=== PATIENT | male | born 1960 | race Caucasian/White ===

== ENCOUNTER 2016-08-26 16:03 | Emergency (ER) | payer SELFPAY ==
[~2016-08-26] VITALS: Ht 182.9 cm; Wt 70.0 kg
[~2016-08-26 16:03] MED LIST: CLIN1CAP5 PO; SULF1TAB47 PO
[2016-08-26 16:05] VITALS: BP 130/87; PULSE 111; RESP 18; TEMP 97.4; O2SAT 98
[2016-08-26 16:17] VITALS: PULSE 100
--- NOTE | 2016-08-26 16:17 | PD ---
Physical Exam Narrative Pt is a 55 y/o male presenting to the ED with aching all over his body, he took Advil with no relief. Pt denies any injury or trauma. Pt denies any fevers, chills, N/V/D. He reports his pain as an 8/10. Pt denies any IVDU. Pt denies any significant PMHx. Data Data Last Documented VS Vital Signs Date Time Temp Pulse Resp B/P Pulse Ox O2 Delivery O2 Flow Rate FiO2 08/26/16 16:05 97.4 111 18 130/87 98 MDM Supervised Visit with ARNIE: Blessing Angeles Aug 26, 2016 16:17
--- NOTE | 2016-08-26 16:23 | PD ---
HPI Chief Complaint: Pain: Acute or Chronic Time Seen by Provider: 16:22 Travel History International Travel<30 days: No Contact w/Intl Traveler<30days: No Traveled to known affect area: No History of Present Illness HPI 55-year-old male with no significant medical history presents to emergency department for evaluation of generalized joint pain. Patient states this began 2 days ago when he woke up. He states that it involved all of his joints including his fingers and wrists. He states that today it is "slightly better" his hands are not involved. He does still have wrist elbow, hip, knee, ankle aching. Denies any injury. Has not been working or doing any new activities. Denies any fever or chills. No recent illnesses. No self or familial history of autoimmune disease. States that he heard on the radio the inflammation can cause so he felt he should come to emergency department for further evaluation of this. Patient has no primary care provider, therefore he states he has no significant medical history. Denies IV drug use. He takes no current medications. PFSH Past Medical History Medical History: Denies Significant Hx Social History Alcohol Use: No Tobacco Use: No Substance Use: No Allergies-Medications (Allergen,Severity, Reaction): Coded Allergies: No Known Allergies (Verified , 05/02/13) Reported Meds & Prescriptions Reported Meds & Active Scripts Active Medrol Dosepak (Methylprednisolone) 4 Mg Dspk 4 Mg PO DIRECTED Per Pharmacist direction Bactrim Ds (Trimethoprim/Sulfamethoxazole) Tab 1 Tab PO BID Clindamycin Hcl (Clindamycin HCl) 150 Mg Cap 2 Capl PO TID 10 Days Review of Systems Except as stated in HPI: all other systems reviewed are Neg Physical Exam Narrative GENERAL: Well-nourished male patient, ambulatory distress SKIN: Focused skin assessment warm/dry. No erythema or edema. HEAD: Atraumatic. Normocephalic. EYES: Pupils equal and round. No scleral icterus. No injection or drainage. ENT: No nasal bleeding or discharge. Mucous membranes pink and moist. NECK: Trachea midline. No JVD. CARDIOVASCULAR: Regular rate and rhythm. No murmur appreciated. RESPIRATORY: No accessory muscle use. Clear to auscultation. Breath sounds equal bilaterally. GASTROINTESTINAL: Abdomen soft, non-tender, nondistended. Hepatic and splenic margins not palpable. MUSCULOSKELETAL: No obvious deformities. No clubbing. No cyanosis. No edema. NEUROLOGICAL: Awake and alert. No obvious cranial nerve deficits. Motor grossly within normal limits. Normal speech. PSYCHIATRIC: Appropriate mood and affect; insight and judgment normal. Data Data Last Documented VS Vital Signs Date Time Temp Pulse Resp B/P Pulse Ox O2 Delivery O2 Flow Rate FiO2 08/26/16 17:40 90 133/82 95 Room Air 08/26/16 16:05 97.4 18 Orders Iv Access Insert/Monitor (08/26/16 16:26) Complete Blood Count With Diff (08/26/16 16:26) Basic Metabolic Panel (Bmp) (08/26/16 16:26) C-Reactive Protein (Crp) (08/26/16 16:26) Creatine Kinase (Cpk) (08/26/16 16:26) Sodium Chlor 0.9% 1000 Ml Inj (Ns 1000 M (08/26/16 16:30) Ketorolac Inj (Toradol Inj) (08/26/16 16:30) Labs Laboratory Tests Test 08/26/16 16:45 White Blood Count 4.7 TH/MM3 Red Blood Count 4.20 MIL/MM3 Hemoglobin 14.5 GM/DL Hematocrit 42.5 % Mean Corpuscular Volume 101.2 FL Mean Corpuscular Hemoglobin 34.5 PG Mean Corpuscular Hemoglobin 34.1 % Concent Red Cell Distribution Width 20.5 % Platelet Count 108 TH/MM3 Mean Platelet Volume 7.4 FL Neutrophils (%) (Auto) 54.8 % Lymphocytes (%) (Auto) 26.2 % Monocytes (%) (Auto) 15.0 % Eosinophils (%) (Auto) 2.6 % Basophils (%) (Auto) 1.4 % Neutrophils # (Auto) 2.6 TH/MM3 Lymphocytes # (Auto) 1.2 TH/MM3 Monocytes # (Auto) 0.7 TH/MM3 Eosinophils # (Auto) 0.1 TH/MM3 Basophils # (Auto) 0.1 TH/MM3 CBC Comment DIFF FINAL Differential Comment Sodium Level 139 MEQ/L Potassium Level 3.7 MEQ/L Chloride Level 103 MEQ/L Carbon Dioxide Level 24.0 MEQ/L Anion Gap 12 MEQ/L Blood Urea Nitrogen 5 MG/DL Creatinine 0.70 MG/DL Estimat Glomerular Filtration 117 ML/MIN Rate Random Glucose 86 MG/DL Calcium Level 8.4 MG/DL Total Creatine Kinase 100 U/L C-Reactive Protein 1.37 MG/DL MDM Medical Decision Making Medical Screen Exam Complete: Yes Emergency Medical Condition: Yes Medical Record Reviewed: Yes Differential Diagnosis Arthralgias versus osteoarthritis versus RA versus viral syndrome versus PMR Narrative Course 55-year-old male presents to emergency department for evaluation generalized arthralgias. Patient appears well without distress. Vital signs are stable. CBC is without acute concern. BMP is also without acute concern. CRP is slightly elevated 1.37. Patient is given IV fluids and his heart rate normalizes. He is given Toradol. I will start him on a short course of oral steroids. I encouraged that he establish care with a primary care provider and return immediately with any acute worsening symptoms. Patient is in agreement with the plan of care . Diagnosis Primary Impression: Arthralgia of ankle Qualified Code: M25.571 - Arthralgia of both ankles Additional Impressions: Arthralgia of back Arthralgia of both elbows Arthralgia of both hands Arthralgia of both knees Referrals: Primary Care Physician Patient Instructions: Arthralgia (ED), General Instructions Additional Instructions: Seek primary care evaluation Maintain adequate oral hydration Return immediately with any acute worsening of symptoms Med/Other Pt SpecificInfo: Prescription(s) given Scripts Methylprednisolone Dosepak (Medrol Dosepak)4 Mg Dspk4 Mg PO DIRECTED #1 DSPK Ref 0 Per Pharmacist direction Prov:Leah Franklin 08/26/16 Disposition: 01 DISCHARGE HOME Condition: Stable Leah Franklin Aug 26, 2016 16:22
[2016-08-26] MEDS ORDERED: SODIUM CHLOR 0.9% 1000 ML INJ 1,000 ML IV ONE (16:30)
[2016-08-26] MEDS ORDERED: KETOROLAC TROMETHAMINE 30 MG/ML (IVP) VIAL IV PUSH ONE (16:30)
[2016-08-26 17:07] LABS: AUTOMATED NEUTROPHIL # 2.6 TH/MM3 (1.8-7.7); BASOPHIL # 0.1 TH/MM3 (0-0.2); BASOPHIL % 1.4 % (0.0-2.0); EOSINOPHIL # 0.1 TH/MM3 (0-0.4); EOSINOPHIL % 2.6 % (0.0-4.0); HEMATOCRIT 42.5 % (39.0-51.0); HEMO FLAGS DIFF FINAL; LYMPH % 26.2 % (9.0-44.0); LYMPHOCYTE # 1.2 TH/MM3 (1.0-4.8); MEAN CELL VOLUME 101.2 FL (80.0-100.0); MEAN CORPUSCULAR HEMOGLOBIN 34.5 PG (27.0-34.0); MEAN CORPUSCULAR HGB CONC 34.1 % (32.0-36.0); NEUT % 54.8 % (16.0-70.0); PLATELET COUNT 108 TH/MM3 (150-450); RED CELL DISTRIBUTION WIDTH 20.5 % (11.6-17.2); WHITE BLOOD COUNT 4.7 TH/MM3 (4.0-11.0)
[2016-08-26 17:25] LABS: POTASSIUM 3.7 MEQ/L (3.5-5.1)
[2016-08-26 17:40] VITALS: BP 133/82; PULSE 90; O2SAT 95
[2016-08-26] MEDS ORDERED: MEDR4PAK PO (18:19)
== END 2016-08-26 18:40 | disposition home or self-care (01) ==
LOC: NEPD 16:03
DX: M25.572 Pain in left ankle and joints of left foot (principal); M25.571 Pain in right ankle and joints of right foot; M25.522 Pain in left elbow; M25.521 Pain in right elbow; M25.562 Pain in left knee; M25.561 Pain in right knee; M54.9 Dorsalgia, unspecified; M25.542 Pain in joints of left hand; M25.541 Pain in joints of right hand
CPT/HCPCS: 80048; 82550; 85025; 86140; 96361; 96374; 99283; J1885; J7030

== ENCOUNTER 2016-09-28 18:12 | Emergency (ER) | payer OTHER ==
[~2016-09-28] VITALS: Ht 182.9 cm; Wt 70.0 kg
[~2016-09-28 18:12] MED LIST changes: +MEDR4PAK PO
[2016-09-28 18:17] VITALS: BP 107/57; PULSE 99; RESP 18; TEMP 98.6; O2SAT 99
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
[2016-09-28] MEDS ORDERED: TETANUS/DIPHTHERIA TOXOID ADULT 0.5 ML VIAL IM ONE (18:45)
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
[2016-09-28] MEDS ORDERED: LEVO750T3 PO (20:14)
[2016-09-28] MEDS ORDERED: TRAM50TA PO (20:14)
[2016-09-28] MEDS ORDERED: MOBI15TA PO (20:14)
[2016-09-28] MEDS ORDERED: LEVOFLOXACIN 750 MG TAB PO ONE (20:15)
[2016-09-28] MEDS ORDERED: KETOROLAC TROMETHAMINE 60 MG/2 ML (IM) VIAL IM ONE (20:15)
[2016-09-28 21:17] VITALS: BP 110/60
== END 2016-09-28 21:18 | disposition home or self-care (01) ==
LOC: NEPD 18:12
DX: J18.9 Pneumonia, unspecified organism (principal); M54.2 Cervicalgia; M25.571 Pain in right ankle and joints of right foot; M25.531 Pain in right wrist; M25.532 Pain in left wrist; M25.522 Pain in left elbow; T14.8 Other injury of unspecified body region; V09.9XXA Pedestrian injured in unspecified transport accident, initial encounter
CPT/HCPCS: 70450; 71010; 72072; 72100; 72125; 72170; 73080; 73110; 73610; 90471; 90714; 96372; 99285; J1885